=== PATIENT | female | born 1950 ===

== ENCOUNTER 2020-06-13 09:15 | Inpatient (IN) | payer OTHER ==
[~2020-06-13] VITALS: Ht 157.5 cm; Wt 60.8 kg
[2020-06-13] MEDS ORDERED: SINGULAIR10 MG PO (15:55)
[2020-06-13] MEDS ORDERED: LIPITOR20 MG PO (15:55)
[2020-06-13] MEDS ORDERED: HYZAAR 100-12.1 EACH PO (15:55)
[2020-06-20] MEDS ORDERED: VITAMIN D325 MC3 (10:19)
[2020-06-20] MEDS ORDERED: VITAMIN C1000 MG (10:19)
[2020-06-20] MEDS ORDERED: VITAMIN E1000 UNI2 (10:19)
[2020-06-24] MEDS ORDERED: HYOSCYAMINE0.125 M1 SL (14:51)
[2020-06-24] MEDS ORDERED: OXYC1TAB9 PO (14:52)
== END 2020-06-24 15:59 | disposition home or self-care (01) | DRG 331 ==
LOC: SURH 06-20 09:15 → O/R 06-20 09:45 → SURH 06-20 09:45
PROVIDERS: ADMIT Surgery; ATTEND Surgery
PROC: 07TB4ZZ Resection of Mesenteric Lymphatic, Percutaneous Endoscopic Approach (ICD-10-PCS; 2020-06-20)
PROC: 0DTF4ZZ Resection of Right Large Intestine, Percutaneous Endoscopic Approach (ICD-10-PCS; principal; 2020-06-20 12:30)
PROC: 3E0F7GC Introduction of Other Therapeutic Substance into Respiratory Tract, Via Natural or Artificial Opening (ICD-10-PCS; 2020-06-21)
DX: D12.2 Benign neoplasm of ascending colon (principal); D36.0 Benign neoplasm of lymph nodes; R19.5 Other fecal abnormalities; K63.89 Other specified diseases of intestine; I11.9 Hypertensive heart disease without heart failure; F32.9 Major depressive disorder, single episode, unspecified; F41.9 Anxiety disorder, unspecified; J45.20 Mild intermittent asthma, uncomplicated; G47.00 Insomnia, unspecified; N18.30 Chronic kidney disease, stage 3 unspecified; D64.9 Anemia, unspecified; J44.9 Chronic obstructive pulmonary disease, unspecified